=== PATIENT | female | born 1950 | race Caucasian/White ===

== ENCOUNTER 2017-08-06 09:36 | Inpatient (IN) | payer OTHER ==
[2017-08-06] MEDS ORDERED: NS 0.9% 1000 ML* 1,000 ML IV ONE (10:05)
[2017-08-06 10:29] LABS: ABS Basophils 0.1 10^3/ul (0-0.2); ABS Eosinophils 0 10^3/ul (0-0.6); ABS Lymphocytes 0.9 10^3/ul (1.0-4.8); ABS Monocytes 0.5 10^3/ul (0-0.8); ABS Nucleated RBC 0 10^3/ul; Eosinophil % 0.7 % (0-6); Hematocrit 42 % (35-47); Hemoglobin 14.1 g/dl (12.0-16.0); Lymphocyte % 11.8 % (25-47); Mean Corpuscular HGB Conc 34 g/dl (31-36); Mean Corpuscular Hemoglobin 31 pg (27-31); Mean Corpuscular Volume 93 fL (80-97); Mean Platelet Volume 8 um3 (7.4-10.4); Nucleated Red Blood Cells % 0; Platelet Count 244 10^3/ul (150-450); Red Blood Count 4.53 10^6/ul (4.0-5.4); Red Cell Distribution Width 13 % (10.5-15); White Blood Count 7.5 10^3/ul (3.5-10.8)
--- NOTE | 2017-08-06 10:39 | RAD ---
Indication: Neurological changes; code bailey. Comparison: August 09, 2015 MRI. Technique: Noncontrast CT vertex of skull through foramen magnum. Report: Small region of encephalomalacia at the medial RIGHT occipital lobe. Small bilateral chronic infarcts at the cerebellum. Negative for bailey matter white matter obscuration associated with mass effect or intra-axial or extra-axial hemorrhage. Unremarkable cerebral sulci, cerebellar fissures, ventricles, basal cisterns. Unremarkable calvarium and skull base. Clear visualized paranasal sinuses and mastoid air spaces. Unremarkable scalp. IMPRESSION: 1. No evidence for intracranial hemorrhage or compelling CT stigmata of acute or subacute ischemic stroke. 2. Mild encephalomalacia at the medial RIGHT occipital lobe likely reflecting sequela of previous infarct and small bilateral chronic cerebellar lacunar infarcts. Results discussed with Dr. Monge 08/06/2017 10:35 AM EST
[2017-08-06 10:47] LABS: INR 0.84 (0.77-1.02)
--- NOTE | 2017-08-06 10:50 | RAD ---
Indication: Transient vision loss to/code bailey. Comparison: July 07, 2017 CT. Technique: Upright AP 1035 hours Report: Mild pleural parenchymal scarring noted at the inferior lingula unchanged from the prior CT. The lungs and pleural spaces are otherwise clear. Negative for pneumothorax. Negative for cardiomegaly. Bilateral epicardial fat pads noted. Unremarkable central pulmonary vasculature. Anterior cervical fusion hardware noted. IMPRESSION: No evidence for acute intrathoracic disease.
[2017-08-06] MEDS ORDERED: Iohexol 350* (CONTRAST) 500 ML MDV IV ONE (11:15)
--- NOTE | 2017-08-06 12:07 | RAD ---
HISTORY: TIA COMPARISONS: Head CT dated August 06, 2012 TECHNIQUE: The following sequences were obtained of the head: Sagittal T1-weighted images, axial T2-weighted images, axial FLAIR images, axial susceptibility weighted images, axial T1-weighted images. Additionally, axial diffusion-weighted images were obtained with calculated apparent diffusion coefficients. FINDINGS: HEMORRHAGE/INFARCT: There is no hemorrhage or acute infarct. MASSES/SHIFT: There is no mass or shift. EXTRA-AXIAL SPACES/MENINGES: There are no extra-axial fluid collections. SULCI AND VENTRICLES: The sulci and ventricles are normal in size and position for the patient's stated age. CEREBRUM: There is a small focus of encephalomalacia within the right occipital lobe. BRAINSTEM: There are no focal parenchymal abnormalities. CEREBELLUM: There are chronic lacunar infarcts of the inferior cerebellum bilaterally. The cerebellar tonsils are normal in size and position. SELLA: The sella is normal. PINEAL: The pineal region is clear. CP ANGLE/TEMPORAL BONES: The labyrinthine structures are grossly normal. VESSELS: Normal flow-voids are noted within the visualized vertebral vasculature. DIFFUSION ABNORMALITIES: There are no diffusion abnormalities. PARANASAL SINUSES/MASTOIDS: The paranasal sinuses are clear. ORBITS: The orbits are unremarkable. BONES AND SOFT TISSUE: No bone or soft tissue abnormalities are noted. OTHER: None IMPRESSION: 1. SMALL FOCUS OF ENCEPHALOMALACIA WITHIN THE RIGHT OCCIPITAL LOBE WITH CHRONIC LACUNAR INFARCTS OF THE INFERIOR CEREBELLUM BILATERALLY. 2. NO RESTRICTED DIFFUSION TO SUGGEST ACUTE INFARCT
--- NOTE | 2017-08-06 12:44 | ED ---
Juan R Dailey Angela, scribed for George Monge MD on 08/06/17 at 1005 . Neurological HPI - HPI Summary HPI Summary: This pt is a 66 y/o female presenting to [facility] c/o loss of vision from both eyes at around 08:30 this morning. She reports she was on her way to her PCP's office for a prescription refill. She notes she felt well this morning upon waking up. Pt notes it happened spontaneously, lasting approximately 10-15 seconds. She was able to mold puller and stop her car. Pt states she felt disoriented. She reports her vision resolved spontaneously all at once "slowly. " Since loss of vision pt states she has slight tingling on her left cheek. Pt denies slurred speech, difficulty speaking, weakness in extremities, chest pain , palpitations. She has had a previous CVA (2014) where she had loss of vision of left eye , now has left lower quadrant vision deficit. Pt is currently on a baby aspirin. Her neurologist is Dr. Phipps. Pt has a loop recorder to find a possible atrial fibrillation, followed up by line staker Dr. Perales. - History of Current Complaint Chief Complaint: EDNeurologicalDeficit Stated Complaint: LOST VISION IN BOTH EYES Time Seen by Provider: 08/06/17 09:53 Hx Obtained From: Patient Onset/Duration: Started hours ago, Resolved Timing: Sudden Onset - lasting 10-15 seconds Onset Severity: Moderate Current Severity: None Pain Intensity: 0 Character: Visual Changes - loss of vision, Other: - tingling on left cheek, disoriented Episode Lasting: Seconds/Minutes - 10-15 seconds Aggravating: Nothing Alleviating: Spontanious Resolution Associated Signs and Symptoms: Positive: Visual Changes - loss of vision - Additional Pertinent History Primary Care Physician: [id number] - Allergy/Home Medications Allergies/Adverse Reactions: Allergies Allergy/AdvReac Type Severity Reaction Status Date / Time Levofloxacin [From Levaquin] Allergy Palpitation Verified 05/26/17 13:45 s Home Medications: Home Medications ALPRAZolam TAB* [Xanax TAB*] 0.25 mg PO BID PRN 08/06/17 [History Confirmed ] Budesonide/Formote 160/4.5(NF) [Symbicort 160/4.5 (NF)] 2 puff INH BID 08/06/17 [History Confirmed 08/06/17] Ibandronate TAB(NF) [Boniva(NF)] 150 mg PO MONTHLY 08/06/17 [History Confirmed 08/06/17] Tiotropium CAP.INH* [Spiriva CAP.INH*] 1 cap.inh INH DAILY 08/06/17 [History Confirmed 08/06/17] PMH/Surg Hx/FS Hx/Imm Hx Endocrine/Hematology History: Reports: Hx Systemic Lupus Erythematosus Denies: Hx Diabetes Cardiovascular History: Denies: Hx Hypertension, Hx Pacemaker/ICD History: Denies: Hx Renal Disease Musculoskeletal History: Reports: Hx Tendonitis - tendon rupture - right index finger, had surgery to repair. Denies: Hx Osteoporosis Sensory History: Reports: Hx Contacts or Glasses - reading Denies: Hx Hearing Aid Opthamlomology History: Reports: Hx Contacts or Glasses - reading Neurological History: Reports: Hx CVA, Other Neuro Impairments/Disorders - peripheral vision problems since June Psychiatric History: Denies: Hx Panic Disorder - Cancer History Hx Chemotherapy: No Hx Radiation Therapy: No - Surgical History Surgery Procedure, Year, and Place: LAMINECTOMY C5,C6,C7 FUSION, HYSTERECTOMY, FEMORAL NERVE IMPINGEMENT, RIGHT HAND COMPARTMENT RELEASE, RIGHT FOOT NEUROMA. INTERNAL LOOP RECORDER [employer] REVE[employer] INSERTED LEFT CHEST 11/2015-1.5 AFTER 6 WEEKS. RIGHT HAND INDEX FINGER 2014-RUPTURED TENDON REPAIR Infectious Disease History: No Infectious Disease History: Denies: Traveled Outside the [place] in Last 30 Days - Family History Known Family History: Positive: Other - Father: CHF. Mother: breast CA. - Social History Alcohol Use: Daily Alcohol Amount: 4 beers or less Substance Use Type: Reports: None Smoking Status (MU): Former Smoker Review of Systems Negative: Fever, Chills Eyes: Other - loss of vision for 10-15 seconds. Negative: Palpitations, Chest Pain Neurological: Other - NEG: slurred speech, difficulty speaking Positive: Paresthesia - left cheek. Negative: Weakness All Other Systems Reviewed And Are Negative: Yes Physical Exam - Summary Physical Exam Summary: General: well-appearing, no pain distress Skin: warm, color reflects adequate perfusion, dry Head: normal Eyes: EOMI, DESIREE ENT: normal Neck: supple, nontender Respiratory: CTA, breath sounds present Cardiovascular: RRR Abdomen: soft, nontender Bowel: present Musculoskeletal: normal, strength/ROM intact Neurological: sensory/motor intact, A&O x3. Pt reports slight acute decreased sensation of the left sided face. Loss of vision to the left lower quadrant from both eyes. Psychological: affect/mood appropriate Triage Information Reviewed: Yes Vital Signs On Initial Exam: Initial Vitals Temp Pulse Resp BP Pulse Ox 98.3 F 83 20 173/68 100 08/06/17 09:38 08/06/17 09:38 08/06/17 09:38 08/06/17 09:38 08/06/17 09:38 Vital Signs Reviewed: Yes - Wendy Coma Scale Best Eye Response: 4 - Spontaneous Best Motor Response: 6 - Obeys Commands Best Verbal Response: 5 - Oriented Diagnostics - Vital Signs Vital Signs Temp Pulse Resp BP Pulse Ox 08/06/17 09:38 98.3 F 83 20 173/68 100 - Laboratory Lab Results: Lab Results 08/06/17 08/06/17 08/06/17 Range/Units 10:13 10:13 10:13 WBC 7.5 (3.5-10.8) 10^3/ul RBC 4.53 (4.0-5.4) 10^6/ul Hgb 14.1 (12.0-16.0) g/dl Hct 42 (35-47) % MCV 93 (80-97) fL MCH 31 (27-31) pg MCHC 34 (31-36) g/dl RDW 13 (10.5-15) % Plt Count 244 (150-450) 10^3/ul MPV 8 (7.4-10.4) um3 Neut % (Auto) 80.3 (38-83) % Lymph % (Auto) 11.8 L (25-47) % Weston % (Auto) 6.2 (1-9) % Eos % (Auto) 0.7 (0-6) % Baso % (Auto) 1.0 (0-2) % Absolute Neuts (auto) 6.0 (1.5-7.7) 10^3/ul Absolute Lymphs (auto) 0.9 L (1.0-4.8) 10^3/ul Absolute Monos (auto) 0.5 (0-0.8) 10^3/ul Absolute Eos (auto) 0 (0-0.6) 10^3/ul Absolute Basos (auto) 0.1 (0-0.2) 10^3/ul Absolute Nucleated RBC 0 10^3/ul Nucleated RBC % 0 INR (Anticoag Therapy) 0.84 (0.77-1.02) APTT 33.3 (26.0-36.3) seconds Sodium 138 (133-145) mmol/L Potassium 3.9 (3.5-5.0) mmol/L Chloride 102 (101-111) mmol/L Carbon Dioxide 28 (22-32) mmol/L Anion Gap 8 (2-11) mmol/L BUN 14 (6-24) mg/dL Creatinine 0.74 (0.51-0.95) mg/dL Est GFR ( Amer) 101.6 (>60) Est GFR (Non-Af Amer) 79.0 (>60) BUN/Creatinine Ratio 18.9 (8-20) Glucose 113 H (70-100) mg/dL Lactic Acid (0.5-2.0) mmol/L Calcium 9.6 (8.6-10.3) mg/dL Total Bilirubin 0.60 (0.2-1.0) mg/dL AST 24 (13-39) U/L ALT 23 (7-52) U/L Alkaline Phosphatase 66 (34-104) U/L Troponin I 0.00 (<0.04) ng/mL Total Protein 7.1 (6.4-8.9) g/dL Albumin 4.5 (3.2-5.2) g/dL Globulin 2.6 (2-4) g/dL Albumin/Globulin Ratio 1.7 (1-3) Triglycerides 88 mg/dL Cholesterol 195 mg/dL LDL Cholesterol 83 mg/dL HDL Cholesterol 94.1 mg/dL Blood Type Antibody Screen 08/06/17 08/06/17 Range/Units 10:13 10:13 WBC (3.5-10.8) 10^3/ul RBC (4.0-5.4) 10^6/ul Hgb (12.0-16.0) g/dl Hct (35-47) % MCV (80-97) fL MCH (27-31) pg MCHC (31-36) g/dl RDW (10.5-15) % Plt Count (150-450) 10^3/ul MPV (7.4-10.4) um3 Neut % (Auto) (38-83) % Lymph % (Auto) (25-47) % Weston % (Auto) (1-9) % Eos % (Auto) (0-6) % Baso % (Auto) (0-2) % Absolute Neuts (auto) (1.5-7.7) 10^3/ul Absolute Lymphs (auto) (1.0-4.8) 10^3/ul Absolute Monos (auto) (0-0.8) 10^3/ul Absolute Eos (auto) (0-0.6) 10^3/ul Absolute Basos (auto) (0-0.2) 10^3/ul Absolute Nucleated RBC 10^3/ul Nucleated RBC % INR (Anticoag Therapy) (0.77-1.02) APTT (26.0-36.3) seconds Sodium (133-145) mmol/L Potassium (3.5-5.0) mmol/L Chloride (101-111) mmol/L Carbon Dioxide (22-32) mmol/L Anion Gap (2-11) mmol/L BUN (6-24) mg/dL Creatinine (0.51-0.95) mg/dL Est GFR ( Amer) (>60) Est GFR (Non-Af Amer) (>60) BUN/Creatinine Ratio (8-20) Glucose (70-100) mg/dL Lactic Acid 0.9 (0.5-2.0) mmol/L Calcium (8.6-10.3) mg/dL Total Bilirubin (0.2-1.0) mg/dL AST (13-39) U/L ALT (7-52) U/L Alkaline Phosphatase (34-104) U/L Troponin I (<0.04) ng/mL Total Protein (6.4-8.9) g/dL Albumin (3.2-5.2) g/dL Globulin (2-4) g/dL Albumin/Globulin Ratio (1-3) Triglycerides mg/dL Cholesterol mg/dL LDL Cholesterol mg/dL HDL Cholesterol mg/dL Blood Type O Positive Antibody Screen Negative Result Diagrams: 08/06/17 10:13 08/06/17 10:13 Lab Statement: Any lab studies that have been ordered have been reviewed, and results considered in the medical decision making process. - Radiology Chest XR Xray Interpretation: No Acute Changes - IMPRESSION: No evidence for acute intrathoracic disease. Dr. Monge has reviewed this radiology report. Radiology Interpretation Completed By: Radiologist - CT Brain CT CT Interpretation: No Acute Changes - IMPRESSION: 1. No evidence for intracranial hemorrhage or compelling CT stigmata of acute or subacute ischemic stroke. 2. Mild encephalomalacia at the medial RIGHT occipital lobe likely reflecting sequela of previous infarct and small bilateral chronic cerebellar lacunar infarcts. Dr. Monge has reviewed this radiology report. CT Interpretation Completed By: Radiologist - EKG 10:07 Cardiac Rate: NL EKG Rhythm: Sinus Rhythm - at [address] Segment: Normal Ectopy: None NIH Scale - NIH Scale Level of Consciousness: Alert/Keenly Responsive Ask Patient the Month and His/Her Age: Both Correct Ask Pt to Open/Close Eyes and Research [employer] Supervisor/Release Non-Paretic Hand: Both Correctly Best Gaze (Only Horizontal Eye Movement): Normal Visual Field Testing: Partial Hemianopia Facial Paresis-Pt to Smile & Close Eyes or Grimace Symmetry: Normal/Symmetrical Motor Function - Right Arm: No Drift-Holds 10 Seconds Motor Function - Left Arm: No Drift-Holds 10 Seconds Motor Function - Right Leg: No Drift-Holds 10 Seconds Motor Function - Left Leg: No Drift-Holds 10 Seconds Limb Ataxia-Must be out of Proportion to Weakness Present: Absent Sensory (Use Pinprick to Test Arms/Legs/Trunk/Face): Normal Best Language (Describe Picture, Name Items): No Aphasia Dysarthria (Read Several Words): Normal Extinction and Inattention: No Abnormality Total Score: 1 Course/Dx - Course Course Of Treatment: Medications reviewed. Allergies noted. High blood pressure noted. NIH stroke scale =1. Brain CT shows 1. No evidence for intracranial hemorrhage or compelling CT stigmata of acute or subacute ischemic stroke. 2. Mild encephalomalacia at the medial RIGHT occipital lobe likely reflecting sequela of previous infarct and small bilateral chronic cerebellar lacunar infarcts. I discussed pt care with Dr. Dan, neurologist, who will come see the pt in the ED. DR DAN, NEUROLOGY, SAW PATIENT IN THE ED. ADMIT HOSPITALIST. CRITICAL CARE TIME LESS THAN 30 MINUTES. - Diagnoses Provider Diagnoses: Transient blindness of both eyes, Near syncope During the Visit The Following Alert/Code Occurred: Code Blood - at 10:05 - Physician Notifications Discussed Care Of Patient With: Benito Dan Time Discussed With Above Provider: 10:07 Instructed by Provider To: Other - I discussed pt care with Dr. Dan, neurologist, who will come see the pt in the ED. Discharge - Discharge Plan Condition: Stable Disposition: ADMITTED TO [facility] Referrals: Jose Bass MD [Primary Care Provider] - The documentation as recorded by the Juan R cheung Angela accurately reflects the service I personally performed and the decisions made by me, George Monge MD.
--- NOTE | 2017-08-06 13:03 | RAD ---
HISTORY: Rule out thrombus. No other history is provided. COMPARISONS: August 18, 2015 TECHNIQUE: Multiple transverse and longitudinal ultrasound images were obtained of the bilateral lower extremities from the level of the common femoral vein inferiorly through to the infrapopliteal veins using grayscale, color Doppler, and spectral Doppler imaging with and without compression and with augmentation. FINDINGS: VEINS: There is suboptimal visualization of the right calf veins. The venous system of the bilateral lower extremities is compressible throughout its course, with normal flow on color Doppler imaging and normal response to augmentation on spectral Doppler imaging. SOFT TISSUES: Unremarkable. OTHER FINDINGS: None. IMPRESSION: NO RIGHT LOWER EXTREMITY DEEP VEIN THROMBOSIS. NO LEFT LOWER EXTREMITY DEEP VEIN THROMBOSIS
[2017-08-06] MEDS ORDERED: Acetaminophen TAB* 325 MG PO PRN (13:38)
[2017-08-06] MEDS ORDERED: Ondansetron INJ* 2 MG/ML VIAL IV PRN (13:38)
[2017-08-06] MEDS ORDERED: ALPRAZolam TAB* 0.25 MG PO PRN (13:40)
[2017-08-06] MEDS ORDERED: Albuterol 2.5 MG/3 ML NEB.SOL* (0.083%) INH PRN (13:41)
--- NOTE | 2017-08-06 13:52 | RAD ---
HISTORY: TIA COMPARISONS: MRI dated February 03, 2015 TECHNIQUE: Multiple contiguous axial CT scans were obtained of the head and neck After the administration of nonionic intravenous contrast timed to the systemic arterial phase of contrast enhancement. Coronal and sagittal multiplanar reformations are submitted for review. Multiple 3-D maximum intensity projection reconstructions are also submitted for review. FINDINGS: CTA NECK: AORTIC ARCH: There is a normal three-vessel branching pattern of the aortic arch. There is no ostial or proximal stenosis of the cephalic great vessels. RIGHT VERTEBRAL ARTERY: The right vertebral artery is patent along its course, without stenosis. LEFT VERTEBRAL ARTERY: The left vertebral artery is patent along its course, without stenosis. DOMINANCE: The left vertebral artery is dominant. RIGHT COMMON CAROTID ARTERY: The right common carotid artery is patent. The right carotid bifurcation occurs at C4-C5 RIGHT INTERNAL CAROTID ARTERY: There is no right internal carotid artery stenosis by NASCET criteria. RIGHT EXTERNAL CAROTID ARTERY: The right external carotid artery is unremarkable. LEFT COMMON CAROTID ARTERY: The left common carotid artery is patent. The left carotid bifurcation occurs at C3-C4 LEFT INTERNAL CAROTID ARTERY: There is no left internal carotid artery stenosis by NASCET criteria. LEFT EXTERNAL CAROTID ARTERY: The left external carotid artery is unremarkable. VENOUS CIRCULATION: The venous system is unremarkable. SALIVARY GLANDS: The parotid glands, submandibular glands, sublingual glands are normal. NASAL CAVITY/NASOPHARYNX: The nasal cavity and nasopharynx are normal. ORAL CAVITY/OROPHARYNX: The oral cavity is obscured by streak artifact from dental amalgam. The visualized oral cavity and oropharynx are unremarkable. LARYNGEAL APPARATUS/HYPOPHARYNX: The laryngeal apparatus and hypopharynx are normal. UPPER AIRWAY/UPPER ESOPHAGUS: The visualized upper airway and esophagus are normal. LUNG APICES: The lung apices are clear. THYROID GLAND: The thyroid gland is normal. LYMPH NODES: There is no lymphadenopathy by size criteria. BONES AND SOFT TISSUES: The patient is status post anterior cervical fusion, and decompressive laminectomy at C5-C6 and C6-C7. CTA HEAD: INTRACRANIAL CIRCULATION: There is no aneurysm, vascular malformation, occlusion, or stenosis of the visualized intracranial circulation. The anterior communicating artery complex is clear. The posterior communicating arteries are diminutive, if present. VENOUS CIRCULATION: The venous system is unremarkable. PERFUSION: There is no obvious parenchymal perfusion deficit. HEMORRHAGE/INFARCT: There is no hemorrhage or acute infarct. MASSES/SHIFT: There is no mass or shift. EXTRA-AXIAL SPACES: There are no extra-axial fluid collections. SULCI AND VENTRICLES: The sulci and ventricles are normal in size and position for the patient's stated age. CEREBRUM: Again noted is right occipital encephalomalacia. BRAINSTEM: There are no focal parenchymal abnormalities. CEREBELLUM: There are no focal parenchymal abnormalities. PARANASAL SINUSES: The paranasal sinuses are clear. ORBITS: The orbits are unremarkable. BONES AND SOFT TISSUE: No bone or soft tissue abnormalities are noted. OTHER: There is no abnormal enhancement. IMPRESSION: 1. NO INTERNAL CAROTID ARTERY STENOSIS BY NASCET CRITERIA. 2. NO ANEURYSM, VASCULAR MALFORMATION, OCCLUSION, OR STENOSIS OF THE VISUALIZED INTRACRANIAL CIRCULATION. CPT II Codes: 3100F
[2017-08-06] MEDS ORDERED: LORazepam TAB(*) 1 MG PO SCH (14:00)
--- NOTE | 2017-08-06 14:40 | CONS ---
CC: Dr. Jose Bass * CONSULTATION REPORT: DATE OF CONSULT: 08/06/17 LOCATION: She is currently in ED, bed 3. PRIMARY CARE PHYSICIAN: Dr. Jose Bass. REASON FOR CONSULT: Acute vision loss. HISTORY OF PRESENT ILLNESS: Ms. Lopes is a very nice 66-year-old female who presents to the hospital today with acute onset of vision loss. She is followed by me in clinic for a history of some tremors and twitching in the left upper extremity. We are currently in the process of a workup. She did have an EMG dated 02/18/17, which is minimally abnormal, showed no significant radiculopathy. She has a history of prior stroke in July of 2015. At that time, she was admitted having had an episode in June of 2015 of left arm weakness accompanied by left- sided vision loss and lasted approximately 15 minutes and then resolved, but her visual deficits persisted. She had 2 other episodes and ultimately was seen by an orientation and mobility specialist. She eventually had an MRI on the day of admission, which showed possible occipital infarct. At that time, she had a stroke workup. CTA was negative. She had a TTE and then subsequently had a JOYCELYN, which showed a small patent foramen ovale. Dopplers of the lower extremities were negative. She did have a repeat MRI on the 17 of August, which showed a small area of restricted diffusion in the right occipital lobe. She was discharged home on aspirin 81 mg q. day, Lipitor, and vitamin D. She has been in her usual state of health when this morning she was driving at about 8:30, she felt slightly nauseated and diaphoretic, "I did not feel right" and subsequently had some palpitations quickly thereafter developing some vision loss which tunneled. She states she had complete vision loss for about 10 to 15 seconds. She was able pull the car over. She did not lose consciousness, but she fell like she might. She noted no chest pain at the time. She noted no numbness, tingling, or weakness in her arms or legs. No eye pain. No hearing loss or ringing in her ears. She noted no facial droop or speech difficulties after the event. She otherwise felt okay. The symptoms resolved after a few seconds and then she came to the ER for further evaluation. In the ER, CT of the head showed the old right occipital stroke, but no acute changes. Since her admission to the ER, she has had no further episodes. She does have a loop recorder that she wears for some history of syncopal-like episodes and although besides the palpitations she felt this morning, she has had no recent heart problems. She denies any falls or any head trauma. No nausea, vomiting, diarrhea, or constipation prior to this episode. She has not recently been sick. She denies any dysuria, frequency or urgency, and besides her chronic left arm twitching and pain, she states she has felt okay. PAST MEDICAL HISTORY: Includes discoid lupus, hypercholesterolemia, prior stroke, and PFO. PAST SURGICAL HISTORY: Includes cervical laminectomy with anterior cervical disk fusion as well compartment release in the right hand, ruptured tendon in the right second digit, and hysterectomy. MEDICATIONS: Current medications at home: 1. Vitamin B complex. 2. Tiotropium. 3. Metoprolol. 4. Ibandronate. 5. Calciferol. 6. Symbicort. 7. Atorvastatin. 8. Lipitor 40 mg q. day. 9. Aspirin 81 mg q. day. 10. Alprazolam 0.25 mg p.o. b.i.d. p.r.n. ALLERGIES: To LEVOFLOXACIN. FAMILY HISTORY: Breast cancer in her mom, stroke in her maternal grandmother, congestive heart failure in her father, half sister with lung cancer, half brother with unknown health. SOCIAL HISTORY: She denies any tobacco use recently. She did smoke in the distant past. Has a [id number]-dwpb history, but quit 10 years ago. She drinks occasionally, but not heavily. REVIEW OF SYSTEMS: In 14 organ systems is noted above, otherwise negative. PHYSICAL EXAM: Vital Signs: Temperature of 98.3, pulse of 83, respiratory rate of 20, pulse ox of 100%, blood pressure 173/68. In general, she is a well- nourished, well-developed female, in no acute distress. She is pleasant, well dressed, well groomed. HEENT: She is normocephalic, atraumatic. Sclerae are anicteric. Mucous membranes are moist. Oropharynx is clear. Neck is slightly stiff. No thyromegaly. No carotid bruits. No meningismus. Chest: Clear to auscultation bilaterally. Cardiovascular: Regular rate and rhythm. No murmurs. Abdomen: Nontender. Extremities: No clubbing, cyanosis, or edema. Her skin is warm and dry without lesions. There are no palpable cords or redness in her legs. On neurologic examination, she is awake, alert, oriented x3. Her speech is fluent. There is no dysarthria. Repetition is intact. Recall of recent and remote events is intact. Vocabulary is intact. Her mood is dysthymic. Affect is mood congruent. Cranial nerves II through XII: Pupils are equal, round, and reactive to light, extraocular muscles are intact. She has a left homonymous lower quadrant anopsia. Face is symmetric. Sensation is intact. Tongue is midline. Palate raises symmetrically. Hearing is intact bilaterally. Sternocleidomastoid and trapezius are both within normal limits . Motor Exam: Spontaneously, she is moving all extremities antigravity with 5/5 throughout with no drift. She does have some give away weakness at times in the left upper extremity, but is able to give good resistance strength intermittently. She has chronic left upper extremity pain and neck pain. Sensation, she states is intact to light touch and pinprick throughout. There is no neglect. Lwuimy-xn-[id number] and rapid alternating movements were intact without tremors. No dysdiadochokinesia or dysmetria. DTRs are 1+ and symmetric in the upper extremities, 2+ at the patella bilaterally, 1+ at the ankles, downgoing Babinski's. Gait was not tested. At this time, she has had no difficulty walking. Her NIH Stroke Scale calculated at the time of my exam was 1; she missed a point for a partial visual loss. DIAGNOSTIC STUDIES/LAB DATA: Lab work includes a CBC with diff, it was essentially normal, percent lymphocyte of 11.8, absolute lymphocyte of 0.9. Her INR of 0.84, PTT 33.3. Chemistry is pending. Triglycerides are 123, cholesterol is 224, LDL of 125, HDL of 74.5. CT scan as above. ASSESSMENT AND PLAN: Ms. Lopes is a 66-year-old female with a history of discoid lupus, history of hyperlipidemia, history of hypertension, prior right occipital stroke with residual left lower homonymous lower quadrant anopsia. Also, has a history of syncopal-like episodes. Has a loop recorder in place. She was noted to have a patent foramen ovale on her prior stroke workup in 2016. This morning was driving when she developed sudden complete visual loss in all galo. She states that she was having some palpitations, felt slightly nauseated, and sweaty at the time and her vision started to tunnel. It lasted for 10 to 15 seconds and then resolved, but she still feels "funny." She has had no other symptoms. At this point, my suspicion for transient ischemic attack is low, but given the fact that she has had a prior stroke with some visual symptoms and patent foramen ovale, we cannot completely rule out the possibility that she had transient ischemic attack with new visual symptoms that along with her prior visual loss could be perceived as complete vision loss. It would be very unusual given the nature of her symptoms, I suspect this is more of a presyncopal-type episode. She does have a loop recorder in place. I recommend the following: Admit for observation. Given her history, I would like to get an MRI to look for any evidence of new stroke, silent strokes that she may have had, and any change since her prior MRI, this is important because they could manager exchange with her patent foramen ovale. If she has had additional strokes, we would consider full-strength anticoagulation versus closure of her patent foramen ovale. I am going to order echocardiogram as well and a CT angiogram to do a full stroke workup. I am also going to order lower extremity Dopplers to look for any evidence of deep venous thrombosis. I will continue her aspirin for now. Continue her Lipitor increasing the dose to full strength 80 mg as her goal LDL should be less than 70 and currently it is not. Because of her symptoms have resolved, I would continue to control her blood pressure, monitor her on telemetry for any evidence of arrhythmia, I would also try to get the loop recorder interrogated to see if she had any arrhythmia during this episode. We will check some additional labs to rule out reversible causes of stroke. We will order orthostatic blood pressures as well. I expect if her work is negative, she will likely go home in the next day or two. I will continue to follow her closely and make further recommendations as necessary. Thank you for the opportunity to participate in her care. [id number]/[facility] [place] #: [id number] ROE
[2017-08-06 15:01] LABS: Urine Appearance Clear; Urine Blood Negative (Negative); Urine Color Yellow; Urine Ketones Trace (Negative); Urine Protein Negative (Negative); Urine Urobilinogen Negative (Negative)
--- NOTE | 2017-08-06 15:16 | ECHO ---
Patient: REENA FAY [facility] Rec#: [id number] : 1950 Date: 08/06/2017 Age: 66y Height: 167.64 cm / 66.0 in Weight: 78.47 kg / 172.9 lbs Sex: F BSA: 1.88 Room#: -3 Admit Date#: 08/06/2017 Type: Inpatient Referring: Hua Dan Reading: Roya Can MD Senior Software Qa Analyst: Pham Mejia RDCS CC: Jose Bass MD Transthoracic Echocardiogram Indication: TIA BP: 150/81 HR: 89 Rhythm: NSR Findings History: Loss of vision this morning,prior TIA CVA,discoid lupus, former smoker, daily ETOH. Technical Comments: The study quality is good. Completed at 1420. Left Ventricle: The left ventricular chamber size is normal. There is normal left ventricular systolic function. The estimated ejection fraction is 55-60%. Abnormal left ventricular diastolic function is observed. Left Atrium: The left atrial chamber size is normal. Right Ventricle: The right ventricle is mildly dilated. The right ventricular global systolic function is normal. Right Atrium: The right atrial cavity size is normal. A patent foramen ovale is visualized. A patent foramen ovale is demonstrated by agitated contrast. There is evidence of an atrial septal aneurysm. Aortic Valve: The aortic valve is trileaflet. There is no evidence of aortic valve thickening. There is a trace of aortic regurgitation. There is no evidence of aortic stenosis. Mitral Valve: The mitral valve leaflets appear normal. There is mild mitral regurgitation. There is no evidence of mitral stenosis. Tricuspid Valve: The tricuspid valve leaflets are normal. There is mild tricuspid regurgitation. No pulmonary hypertension is noted. There is no tricuspid stenosis. Pulmonic Valve: The pulmonic valve appears normal. There is trace to mild pulmonic regurgitation. There is no pulmonic stenosis. Pericardium: A pericardial fat pad is visualized. Aorta: There is no dilatation of the ascending aorta. There is no dilatation of the aortic arch. There is no dilation of the aortic root. Pulmonary Artery: The main pulmonary artery appears normal. Venous: The inferior vena cava appears normal in size. There is a greater than 50% respiratory change in the inferior vena cava dimension. Contrast: Normal saline was used as contrast for the bubble study. Intravenous contrast was used to help determine presence of intracardiac shunting. Conclusions There is normal left ventricular systolic function. The estimated ejection fraction is 55-60%. Abnormal left ventricular diastolic function is observed. Mild RV enlargement with normal systolic function. A patent foramen ovale is demonstrated by agitated contrast. There is a trace of aortic regurgitation. There is mild mitral regurgitation. There is mild tricuspid regurgitation. Compared with JOYCELYN of 08/09/15, PFO confirmed, no significant changes in ventricular or valvular function, RVE is now. Measurements Name Value Normal Range RVIDd (AP) 2D 2.8 cm (0.9 - 2.6) RVDdMajor (2D) 3.5 cm (2.2 - 4.4) RAd ISD 4CH 4.8 cm (3.4 - 4.9) RA (A4C)W 3.7 cm (2.9 - 4.6) IVSd (2D) 1 cm (0.6 - 1) LVPWd (2D) 1 cm (0.6 - 1) LVIDd (2D) 4.1 cm (3.6 - 5.4) LVIDs (2D) 3.2 cm - LV FS (2D) 22 % (25 - 45) Aortic Annulus 2 cm (1.4 - 2.6) Ao root diameter (2D) 3.2 cm (2.1 - 3.5) Ascending Ao 3 cm (2.1 - 3.4) Aortic arch 2.5 cm (1.8 - 3.4) Descending Ao 0.7 cm - LA dimension (AP) 2D 3.5 cm (2.3 - 3.8) LAd ISD 4CH 4.7 cm (2.9 - 5.3) LA ISD 4CH W 3.9 cm (2.5 - 4.5) Name Value Normal Range LA ESV SP 4CH (A/L) 40 ml - LA ESV SP 2CH (A/L) 13 ml - LA ESV BP (A/L) 26 ml - LA ESV BP (A/L) index 13.97 ml/m2 - LA ESV SP 4CH (MOD) 35 ml - LA ESV SP 2CH (MOD) 13 ml - Name Value Normal Range MV E-wave Vmax 0.7 m/sec - MV deceleration time 168 msec - MV A-wave Vmax 0.8 m/sec - MV E:A ratio 0.87 ratio - LV septal e' Vmax 0.11 m/sec - LV lateral e' Vmax 0.08 m/sec - LV E:e' septal ratio 6.36 ratio - LV E:e' lateral ratio 8.75 ratio - Name Value Normal Range AV Vmax 1.3 m/sec - AV VTI 32.6 cm - AV peak gradient 6.26 mmHg - AV mean gradient 3.59 mmHg - LVOT Vmax 1 m/sec - LVOT VTI 23.9 cm - LVOT peak gradient 3.63 mmHg - LVOT mean gradient 1.7 mmHg - Name Value Normal Range TR Vmax 2.5 m/sec - TR peak gradient 24 mmHg - RAP 3 mmHg - RVSP 27 mmHg - IVC diameter 1.8 cm - Name Value Normal Range PV Vmax 0.9 m/sec - PV peak gradient 3.15 mmHg -
[2017-08-06] MEDS: Heparin VIAL(*) 5000 UNITS/ML VIAL (FIVE THOUSAND) SUBCUT SCH ×2 (15:44→21:02)
--- NOTE | 2017-08-06 17:01 | HP ---
CC: Dr. Bass; Dr. Dan * HISTORY AND PHYSICAL: DATE OF ADMISSION: 08/06/17 PRIMARY CARE PROVIDER: Dr. Bass. ATTENDING PHYSICIAN WHILE IN THE HOSPITAL: Dr. Leo Alvarado * (report dictated by Dariusz Zambrano NP). CHIEF COMPLAINT: Vision loss. HISTORY OF PRESENT ILLNESS: Ms. Marisol Lopes is a 66-year-old female patient with history of CVA, lupus, and PFO. She came into the ER today. She was driving and suddenly she says her vision just went black. She is not sure if she fainted, lasted for about 10 to 15 seconds. She had no prodrome of symptoms. No chest pain. No shortness of breath. She denied any palpitations prior to or after. She was able to signal with the car and go to the shoulder. She did not lose control of the vehicle. She did not hit anybody. She did not end up in a ditch. She stopped the vehicle. By the time she stopped the vehicle, she knew she was in the vehicle. She felt panic. She felt confused. She was not having any chest pain or shortness of breath at that point or any palpitations. She was able to phone her . She then was able to back the car in a parking lot where she was close by and they were able to take her to her PCP's office, who evaluated her and was recommended to come into the ED. The patient denied having any facial drooping, no vision loss to one eye. She denied having any chest pressure. There was no weakness to onside. She says that she was not walking with an unsteady gait. She has had her symptoms completely resolve in about 10 to 15 seconds. She said previously with her previous CVA, she did have vision loss in the left side, but this was completely different. She came into the ED under the recommendations of her PCP, she was evaluated. There was concern for TIA versus syncope. She was evaluated by Dr. Dan, who recommended OBV admission, and we were asked to evaluate for admission. There have been no reports of recent illnesses such as URI symptoms, no coughing, no fever, no chills. She denied having any recent abdominal pain or nausea or vomiting, and no recent change in her medications. Because of this episode, we were asked to evaluate for admission. PAST MEDICAL HISTORY: Significant for: 1. PFO. 2. Lupus. 3. History of CVA. PAST SURGICAL HISTORY: 1. The patient has had neck surgery x2. 2. She has had hysterectomy. 3. She has had wrist surgery. MEDICATIONS: The home meds include: 1. Vitamin B 1 capsule p.o. daily. 2. Vitamin D 2000 units p.o. daily. 3. Aspirin 81 mg daily. 4. Xanax 0.25 mg p.o. b.i.d. as needed. 5. Spiriva 1 capsule inhaled daily. 6. Metoprolol XL 25 mg daily. 7. Symbicort 2 puffs inhaled b.i.d. 8. Lipitor 40 mg daily. 9. Boniva 150 mg p.o. monthly. ALLERGY MEDICATIONS: Include LEVAQUIN. FAMILY HISTORY: Her mother is still alive. She is healthy according to the patient. Father had history of CHF and he is . SOCIAL HISTORY: She does drink 5 to 6 beers a day. She denies any recreational drug use. She does not smoke. Surrogate decision maker is her , Andrew. REVIEW OF SYSTEMS: There is no documented fever. There is no significant weight change. Denied having any double vision. There was no ear discharge. There was no rhinorrhea. No sore throat. No thyroid enlargement. Denied having any chest pain. There was no orthopnea. No nocturnal dyspnea. There was no abdominal pain. No nausea, no vomiting. No dysuria, no frequency. No seizure, there is a question of loss of consciousness. No pruritus, no skin ulcerations. Review of 14 systems completed, all others negative. PHYSICAL EXAMINATION GENERAL: At this time, Ms. Lopes is a 66-year-old female patient, she appears to be well-nourished, well-developed, she does not appear to be in any acute distress. VITAL SIGNS: Blood pressure 150/81, pulse 82, respirations 18, O2 sat 95% on room air, and temperature 98.3. HEENT: Head: Atraumatic. Eyes: Sclerae anicteric, not pale. Pupils reactive to light. Throat: Oral mucosa appears to be moist. No oropharyngeal erythema. NECK: Supple. LUNGS: Clear to auscultation bilaterally. No wheezes, rales, or rhonchi. HEART: Sounds S1 and S2, regular rate and rhythm. No murmurs, rubs, or gallops. ABDOMEN: Soft, it was flat, it was nontender. Bowel sounds were present. EXTREMITIES: Pulses were 2+ throughout. No peripheral edema. She had 5/5 strength. NEUROLOGIC: The patient is awake, she is alert. Speech is clear. Tongue midline. Labor Relations Representative were equal. Aqghac-nt-subl and nwdt-tw-wrhp is intact bilaterally. She had no gross focal deficits. SKIN: Intact. DIAGNOSTIC STUDIES/LAB DATA: WBC 7.5, RBC of 4.53, hemoglobin 14.1, hematocrit of 42, and platelet count of 244. INR 0.84, PTT of 33.3. Sodium 138 , potassium 3.9, chloride 102, bicarb 28, BUN 14, creatinine 0.74, glucose 113, lactate 0.9, calcium 9.6. Total bili 0.6, AST 24, ALT 23, alk phos 66. Troponin 0. Albumin 4.5. LDH was 83. She had multiple imaging here in the ED. She had ultrasound of the lower extremities, which showed no right or left lower extremity DVT. She did have an MRI of the brain shows small focus of encephalomalacia, the right occipital lobe with chronic lacunar infarcts of the inferior cerebellum bilaterally. No restriction diffusion to suggest acute infarct. CT brain showed no evidence for an intracranial hemorrhage or compelling CT stigmata of acute or subacute ischemic stroke, mild encephalomalacia of the right middle occipital lobe likely representing sequelae of previous infarct and small bilateral chronic cerebellar lacunar infarcts. She also had a chest x-ray showed no evidence for acute disease. CTA of the head and neck is pending. She had EKG, which showed normal sinus rhythm, rate of 78. No ST elevations or T- wave inversions. Old medical records were reviewed. ASSESSMENT AND PLAN: Ms. Lopes is a 66-year-old female patient coming into the ED today with syncopal versus transient ischemic attack episode. She will be admitted under observation status: 1. Syncope versus transient ischemic attack. At this point, Dr. Dan evaluated the patient. The plan will be to go ahead and interrogate the loop recorder, which the patient has in place to make sure she had no arrhythmia such as atrial fibrillation or ventricular arrhythmias that may have contributed to this. It has been interrogated here in the ED, which is pending. I will go ahead and get neuro checks. We will get orthostatic blood pressure. She has had the CTA, echo, MRI already obtained. She had a lipid panel done already as well and we will continue to follow her closely. We will continue her aspirin and statin therapy for the time being unless we find any episodes of atrial fibrillation, then we need to consider anticoagulation. 2. Patent foramen ovale. Follow with her primary. 3. History of lupus. Continue current medical regimen. 4. History of cerebrovascular accident. Continue with secondary prevention. 5. History of chronic obstructive pulmonary disease. Continue her meds as prescribed. 6. History of osteoporosis. She is to follow with her primary and continue her Boniva. 7. History of hypertension. Continue her metoprolol succinate. 8. DVT prophylaxis. She will be placed on heparin subcu. 9. History of EtOH use. At this point, I will put her on [facility] protocol and I am also checking alcohol level. 10. Code status. She is full code. 11. Fluids, electrolytes, and nutrition. She can have a heart-healthy diet. TIME SPENT: Time spent on admission 60 minutes, greater than half the time was spent [id number] with the patient obtaining my history of physical; the other half time was spent going over the plan of care with the patient and implementing plan of care. I did discuss the plan of care with my attending, Dr. Alvarado; he is in agreement. DARIUSZ ZAMBRANO NP [id number]/[facility] #: [id number] ROE
[2017-08-06] MEDS: Mometasone/Formoter 200/5 MDI INH SCH (20:59)
[2017-08-07] MEDS: Heparin VIAL(*) 5000 UNITS/ML VIAL (FIVE THOUSAND) SUBCUT SCH ×3 (05:47→20:20)
[2017-08-07 07:03] LABS: EGFR Non-African American 98.7 (>60)
[2017-08-07 07:14] LABS: ABS Basophils 0.1 10^3/ul (0-0.2); ABS Eosinophils 0.1 10^3/ul (0-0.6); ABS Lymphocytes 1.1 10^3/ul (1.0-4.8); ABS Monocytes 0.3 10^3/ul (0-0.8); ABS Neutrophils 2.6 10^3/ul (1.5-7.7); ABS Nucleated RBC 0 10^3/ul; Eosinophil % 1.6 % (0-6); Hematocrit 43 % (35-47); Hemoglobin 14.4 g/dl (12.0-16.0); Lymphocyte % 26.1 % (25-47); Mean Corpuscular HGB Conc 33 g/dl (31-36); Mean Corpuscular Hemoglobin 31 pg (27-31); Mean Corpuscular Volume 93 fL (80-97); Mean Platelet Volume 9 um3 (7.4-10.4); Nucleated Red Blood Cells % 0; Platelet Count 231 10^3/ul (150-450); Red Blood Count 4.62 10^6/ul (4.0-5.4); Red Cell Distribution Width 13 % (10.5-15); White Blood Count 4.2 10^3/ul (3.5-10.8)
--- NOTE | 2017-08-07 08:10 | PN ---
Subjective Date of Service: 08/07/17 Interval History: No new issues overnight. No further vision symptoms (does have chronic left lower quadrant vision loss). 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 PFO remains CTA: Reviewed, no significant vascular disease LE Dopplers: Negative Labs: LDL in 80s (on statin), B12, Folate, TSH, Free T4 ok Tele: Sinus with some PVCs Objective Active Medications: Acetaminophen (Tylenol Tab*) 650 mg PO Q4H PRN PRN Reason: FEVER/PAIN Albuterol (Ventolin 2.5 Mg/3 Ml Neb.Mera*) 2.5 mg INH Q2H PRN PRN Reason: SOB/WHEEZING Alprazolam (Xanax Tab*) 0.25 mg PO BID PRN PRN Reason: ANXIETY Aspirin (Aspirin Ec Low Dose*) 81 mg PO DAILY [facility] Atorvastatin Calcium (Lipitor*) 80 mg PO DAILY [facility] Folic Acid (Folvite Tab*) 1 mg PO DAILY [facility] Heparin Sodium (Porcine) (Heparin Vial(*)) 5,000 units SUBCUT Q8HR [facility] Last Admin: 08/07/17 05:47 Dose: 5,000 units Lorazepam (Ativan Tab(*)) 0 - 6 mg PO .PER [facility] PROTOCOL [facility] PRN Reason: Protocol Metoprolol Succinate (Toprol Xl Tab*) 25 mg PO DAILY [facility] Mometasone Furoate/Formoterol Fumar (Dulera 200/5 Mdi*) 2 puff INH BID [facility] PRN Reason: Protocol Last Admin: 08/06/17 20:59 Dose: 2 puff Multivitamins/Minerals (Theragran/Minerals Tab*) 1 tab PO DAILY [facility] Ondansetron HCl (Zofran Inj*) 4 mg IV Q6H PRN PRN Reason: NAUSEA Thiamine HCl (Vitamin B-1 Tab*) 100 mg PO DAILY [facility] Tiotropium [place] (Spiriva Cap.Inh*) 1 cap INH DAILY [facility] Vital Signs 08/06/17 08/06/17 08/06/17 14:36 16:10 17:00 Temperature 97.5 F Pulse Rate 74 77 Respiratory 18 16 16 Rate Blood Pressure 112/60 161/82 (mmHg) O2 Sat by Pulse 96 97 Oximetry 08/06/17 08/06/17 08/06/17 18:00 18:15 18:17 Temperature 98.2 F 98.3 F Pulse Rate 82 72 Respiratory 18 18 18 Rate Blood Pressure 128/66 114/63 (mmHg) O2 Sat by Pulse 99 98 Oximetry 08/06/17 08/06/17 08/06/17 19:00 20:00 20:10 Temperature 98.3 F Pulse Rate 77 Respiratory 18 18 Rate Blood Pressure 134/58 (mmHg) O2 Sat by Pulse 96 97 Oximetry 08/06/17 08/06/17 08/06/17 20:59 21:00 22:19 Temperature Pulse Rate 62 87 Respiratory 14 Rate Blood Pressure 147/73 (mmHg) O2 Sat by Pulse 94 94 Oximetry 08/06/17 08/07/17 08/07/17 22:44 00:19 01:17 Temperature 98.4 F 97.5 F 97.7 F Pulse Rate 72 67 78 Respiratory 20 20 20 Rate Blood Pressure 157/71 128/69 135/91 (mmHg) O2 Sat by Pulse 97 99 95 Oximetry 08/07/17 03:57 Temperature 98.4 F Pulse Rate 71 Respiratory 20 Rate Blood Pressure 124/62 (mmHg) O2 Sat by Pulse 96 Oximetry Oxygen Devices in Use Now: None Neurology Exam: General: Awake, Alert, Oriented x3 HEENT: Normocephelic/atraumstic, sclera anicteric, mucous membranes moist Neck: Supple Chest: Clear to auscultation bilaterally Cardiovascular: Regular rate and rhythm without murmurs, rubs, gallops Abdomen: Soft, nontender/nondistended Extremities: No clubing, cyanosis, or edema Neurological Findings: Awake, Alert, Oriented x3 Speech: fluent without dysarthric, repetition intact Cranial Nerve: PEERL, EOM intact, VF: Left lower homonymous quadrantanopsia, no nystagmus, face symmetric bilaterally, facial sensation intact, hearing intact to finger rub bilaterally, palate elevates symmetrically, tongue midline Motor: 5/5 throughout, proximal and distal extremities x4 except some giveway weakness in the LUE proximally, chronic Sensation: intact to LT/PP bilaterally upper and lower extremities Deep Tendon Reflex: 2+ symmetric in the upper/lower extremities, Babinski - down going Finger to nose, rapid alternating movements intact, mild intention tremor and postural tremor bilaterally Result Diagrams: 08/07/17 05:34 08/07/17 05:34 Additional Lab and Data: Lab Results 08/06/17 08/06/17 08/06/17 Range/Units 10:13 10:13 10:13 WBC 7.5 (3.5-10.8) 10^3/ul RBC 4.53 (4.0-5.4) 10^6/ul Hgb 14.1 (12.0-16.0) g/dl Hct 42 (35-47) % MCV 93 (80-97) fL MCH 31 (27-31) pg MCHC 34 (31-36) g/dl RDW 13 (10.5-15) % Plt Count 244 (150-450) 10^3/ul MPV 8 (7.4-10.4) um3 Neut % (Auto) 80.3 (38-83) % Lymph % (Auto) 11.8 L (25-47) % [place] % (Auto) 6.2 (1-9) % Eos % (Auto) 0.7 (0-6) % Baso % (Auto) 1.0 (0-2) % Absolute Neuts (auto) 6.0 (1.5-7.7) 10^3/ul Absolute Lymphs (auto) 0.9 L (1.0-4.8) 10^3/ul Absolute Monos (auto) 0.5 (0-0.8) 10^3/ul Absolute Eos (auto) 0 (0-0.6) 10^3/ul Absolute Basos (auto) 0.1 (0-0.2) 10^3/ul Absolute Nucleated RBC 0 10^3/ul Nucleated RBC % 0 INR (Anticoag Therapy) 0.84 (0.77-1.02) APTT 33.3 (26.0-36.3) seconds Sodium 138 (133-145) mmol/L Potassium 3.9 (3.5-5.0) mmol/L Chloride 102 (101-111) mmol/L Carbon Dioxide 28 (22-32) mmol/L Anion Gap 8 (2-11) mmol/L BUN 14 (6-24) mg/dL Creatinine 0.74 (0.51-0.95) mg/dL Est GFR ( Amer) 101.6 (>60) Est GFR (Non-Af Amer) 79.0 (>60) BUN/Creatinine Ratio 18.9 (8-20) Glucose 113 H (70-100) mg/dL Lactic Acid (0.5-2.0) mmol/L Calcium 9.6 (8.6-10.3) mg/dL Total Bilirubin 0.60 (0.2-1.0) mg/dL AST 24 (13-39) U/L ALT 23 (7-52) U/L Alkaline Phosphatase 66 (34-104) U/L Troponin I 0.00 (<0.04) ng/mL Total Protein 7.1 (6.4-8.9) g/dL Albumin 4.5 (3.2-5.2) g/dL Globulin 2.6 (2-4) g/dL Albumin/Globulin Ratio 1.7 (1-3) Triglycerides 88 mg/dL Cholesterol 195 mg/dL LDL Cholesterol 83 mg/dL HDL Cholesterol 94.1 mg/dL Blood Type Antibody Screen 08/06/17 08/06/17 Range/Units 10:13 10:13 WBC (3.5-10.8) 10^3/ul RBC (4.0-5.4) 10^6/ul Hgb (12.0-16.0) g/dl Hct (35-47) % MCV (80-97) fL MCH (27-31) pg MCHC (31-36) g/dl RDW (10.5-15) % Plt Count (150-450) 10^3/ul MPV (7.4-10.4) um3 Neut % (Auto) (38-83) % Lymph % (Auto) (25-47) % [place] % (Auto) (1-9) % Eos % (Auto) (0-6) % Baso % (Auto) (0-2) % Absolute Neuts (auto) (1.5-7.7) 10^3/ul Absolute Lymphs (auto) (1.0-4.8) 10^3/ul Absolute Monos (auto) (0-0.8) 10^3/ul Absolute Eos (auto) (0-0.6) 10^3/ul Absolute Basos (auto) (0-0.2) 10^3/ul Absolute Nucleated RBC 10^3/ul Nucleated RBC % INR (Anticoag Therapy) (0.77-1.02) APTT (26.0-36.3) seconds Sodium (133-145) mmol/L Potassium (3.5-5.0) mmol/L Chloride (101-111) mmol/L Carbon Dioxide (22-32) mmol/L Anion Gap (2-11) mmol/L BUN (6-24) mg/dL Creatinine (0.51-0.95) mg/dL Est GFR ( Amer) (>60) Est GFR (Non-Af Amer) (>60) BUN/Creatinine Ratio (8-20) Glucose (70-100) mg/dL Lactic Acid 0.9 (0.5-2.0) mmol/L Calcium (8.6-10.3) mg/dL Total Bilirubin (0.2-1.0) mg/dL AST (13-39) U/L ALT (7-52) U/L Alkaline Phosphatase (34-104) U/L Troponin I (<0.04) ng/mL Total Protein (6.4-8.9) g/dL Albumin (3.2-5.2) g/dL Globulin (2-4) g/dL Albumin/Globulin Ratio (1-3) Triglycerides mg/dL Cholesterol mg/dL LDL Cholesterol mg/dL HDL Cholesterol mg/dL Blood Type O Positive Antibody Screen Negative Assessment/Plan 66 year old with a history of PFO, right occipital and bilateral cerebellar strokes presented with s/s consistent with pre-syncopal episode. My suspicion for TIA is low. Symptoms lasted 10-15 seconds, tunneling vision, palpitations, diaphoresis, nausea 1. Suspect pre-syncope. Workup is negative for new issues. There is no significant progression of ischemic disease. No new strokes seen. LE dopplers negative. 2. She follows with a manager quality regularly as outpatient. Continue ASA. Defer to cardiology regarding management of her cardiac issues. 3. Increase Lipitor to 80mg po q day, goal LDL < 70 4. BP control long-term 5. Interrogate intermediate frame tender monitor for arrhythmia. No tele events, suspicion for A.fib very low 6. Chronic left sided vision loss, unchanged 7. Chronic neck pain is stable 8. History of alcohol use, on Folic acid and Thiamine. Counseled to stop Plan to follow up in my clinic. I have already established with her as outpatient.
[2017-08-07] MEDS ORDERED: Spiriva Inhaler DEVICE* 1 EACH DEVICE INH ONE (09:00)
[2017-08-07] MEDS ORDERED: Atorvastatin* 40 MG TAB PO SCH (09:00)
[2017-08-07] MEDS: Atorvastatin* 80 MG TAB PO SCH (09:03)
[2017-08-07] MEDS: Aspirin EC Low Dose* 81 MG TAB.EC PO SCH (09:03)
[2017-08-07] MEDS: Folic Acid TAB* 1 MG PO SCH (09:04)
[2017-08-07] MEDS: Thiamine TAB* 100 MG TAB PO SCH (09:04)
[2017-08-07] MEDS: Multivitamins/Minerals TAB PO SCH (09:04)
[2017-08-07] MEDS: Metoprolol Succinate XL TAB* 25 MG PO SCH (09:04)
[2017-08-07] MEDS: Tiotropium CAP.INH* CAP.INH/18 MCG (USE ORDER SET !) INH SCH (09:45)
[2017-08-07] MEDS: Mometasone/Formoter 200/5 MDI INH SCH ×2 (09:46→20:10)
--- NOTE | 2017-08-07 11:05 | PN ---
Subjective Date of Service: 08/07/17 Interval History: Patient seen and examined at bedside. Denies fever, chills, shortness of breath , chest discomfort, N/V/D. Chronic left sided vision loss, unchanged. Pt reports calling her at ~ 8 :20 am yesterday after episode. According to cardiology office Pt had an event ~ 8:15 am yesterday of 42 beats of vtach. Tele: Sinus rhythm, rate 70's Family History: Unchanged from Admission Social History: Unchanged from Admission Past Medical History: Unchanged from Admission Objective Active Medications: Acetaminophen (Tylenol Tab*) 650 mg PO Q4H PRN Reason: FEVER/PAIN Albuterol (Ventolin 2.5 Mg/3 Ml Neb.Mera*) 2.5 mg INH Q2H PRN Reason: SOB/ WHEEZING Alprazolam (Xanax Tab*) 0.25 mg PO BID PRN Reason: ANXIETY Aspirin (Aspirin Ec Low Dose*) 81 mg PO DAILY [facility] Atorvastatin Calcium (Lipitor*) 80 mg PO DAILY [facility] Folic Acid (Folvite Tab*) 1 mg PO DAILY [facility] Heparin Sodium (Porcine) (Heparin Vial(*)) 5,000 units SUBCUT Q8HR [facility] Lorazepam (Ativan Tab(*)) 0 - 6 mg PO .PER [facility] PROTOCOL [facility] Metoprolol Succinate (Toprol Xl Tab*) 25 mg PO DAILY [facility] Mometasone Furoate/Formoterol Fumar (Dulera 200/5 Mdi*) 2 puff INH BID [facility] Multivitamins/Minerals (Theragran/Minerals Tab*) 1 tab PO DAILY [facility] Ondansetron HCl (Zofran Inj*) 4 mg IV Q6H PRN Reason: NAUSEA Thiamine HCl (Vitamin B-1 Tab*) 100 mg PO DAILY [facility] Tiotropium [place] (Spiriva Cap.Inh*) 1 cap INH DAILY [facility] Vital Signs - 8 hr 08/07/17 08/07/17 03:57 09:49 Temperature 98.4 F Pulse Rate 71 88 Respiratory 20 16 Rate Blood Pressure 124/62 (mmHg) O2 Sat by Pulse 96 96 Oximetry Oxygen Devices in Use Now: None Appearance: NAD, sitting up in bed Respiratory: Symmetrical Chest Expansion and Respiratory Effort, Clear to Auscultation Cardiovascular: NL Sounds; No Murmurs; No JVD, RRR Abdominal: NL Sounds; No Tenderness; No Distention Extremities: No Edema Skin: No Rash or Ulcers Neurological: Alert and Oriented x 3, NL Muscle Strength and Tone Lines/Tubes/Other Access: Clean, Dry and Intact Peripheral IV - site benign Nutrition: Taking PO's Result Diagrams: 08/07/17 05:34 08/07/17 05:34 Additional Lab and Data: Assess/Plan/Problems-Billing Ms. Lopes is a 66 year old with a past medical history of PFO, right occipital and bilateral cerebellar strokes who presented with s/s consistent with a pre- syncopal episode. Symptoms lasted 10-15 seconds, tunneling vision, palpitations , diaphoresis, nausea - Patient Problems (1) Pre-syncope Comment: - Workup is negative for new issues. There is no significant progression of ischemic disease. No new strokes seen. LE dopplers negative. Low suspicion for TIA - Neurology consult, input appreciated - Pt with 42 beat run of vtach yesterday morning on loop recorder - Cardiology consult, pending (2) PFO (patent foramen ovale) Code(s): Q21.1 - ATRIAL SEPTAL DEFECT SNOMED Code(s): 338957372 Comment: - Bilateral LE dopplers negative for DVT - Continue ASA and to follow with PCP (3) Dyslipidemia Code(s): E78.5 - HYPERLIPIDEMIA, UNSPECIFIED SNOMED Code(s): 160298749 Comment: - LDL is above goal of less than 70 - Increase atorvastatin to 80 mg daily for elevated LDL (4) COPD (chronic obstructive pulmonary disease) Code(s): J44.9 - CHRONIC OBSTRUCTIVE PULMONARY DISEASE, UNSPECIFIED SNOMED Code(s): 03493866 Comment: - No exacerbation at this time - Continue home medications (5) Osteoporosis Code(s): M81.0 - AGE-RELATED OSTEOPOROSIS W/O CURRENT PATHOLOGICAL FRACTURE SNOMED Code(s): 00005697 Comment: - Continue Boniva (6) HTN (hypertension) Code(s): I10 - ESSENTIAL (PRIMARY) HYPERTENSION SNOMED Code(s): 34642595 Comment: - Normotensive - Continue metoprolol succinate (7) Alcohol abuse Code(s): F10.10 - ALCOHOL ABUSE, UNCOMPLICATED SNOMED Code(s): 66751332 Comment: - WAM score 0-3 - Pt encouraged to stop drinking - Continue WAM protocol, multivitamin, thiamine and folic acid (8) Discoid lupus Code(s): L93.0 - DISCOID LUPUS ERYTHEMATOSUS SNOMED Code(s): 244048161 Comment: - No issues at this time. She states she only has problems if she goes out in the sun. (9) CVA (cerebral vascular accident) Code(s): I63.9 - CEREBRAL INFARCTION, UNSPECIFIED SNOMED Code(s): 524331847 Comment: - History - Continue ASA, and increase atorvastatin to 80 mg daily (10) DVT prophylaxis Code(s): EKZ0651 - SNOMED Code(s): 435330976 Comment: - SQ heparin (11) Full code status Code(s): Z78.9 - OTHER SPECIFIED HEALTH STATUS SNOMED Code(s): 531082337 Status and Disposition: OBV. Discharge to home when medically stable, possibly later today after cardiology consult.
[2017-08-07] MEDS ORDERED: Magnesium Sulfate 2 GM IV* 2 GM/50 ML BAG IVPB ONE (11:38)
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
[2017-08-08] MEDS ORDERED: diPHENhydraMINE PO* 50 MG PO SCH (05:00)
[2017-08-08] MEDS ORDERED: Diazepam TAB(*) 5 MG PO SCH (05:00)
[2017-08-08 05:35] LABS: EGFR Non-African American 98.7 (>60)
[2017-08-08] MEDS: Heparin VIAL(*) 5000 UNITS/ML VIAL (FIVE THOUSAND) SUBCUT SCH ×3 (05:44→23:17)
[2017-08-08] MEDS ORDERED: NS 0.45% 1000 ML BAG* 1,000 ML IV SCH (06:00)
--- NOTE | 2017-08-08 08:47 | PN ---
Subjective Date of Service: 08/08/17 Interval History: Patient seen and examined at bedside. Denies fever, chills, shortness of breath , chest discomfort, N/V/D. Reports intermittent "PVCs". Tele: Sinus rhythm, rate 70-80's Family History: Unchanged from Admission Social History: Unchanged from Admission Past Medical History: Unchanged from Admission Objective Active Medications: Acetaminophen (Tylenol Tab*) 650 mg PO Q4H PRN Reason: FEVER/PAIN Albuterol (Ventolin 2.5 Mg/3 Ml Neb.Mera*) 2.5 mg INH Q2H PRN Reason: SOB/ WHEEZING Alprazolam (Xanax Tab*) 0.25 mg PO BID PRN Reason: ANXIETY Aspirin (Aspirin Ec Low Dose*) 81 mg PO DAILY [facility] Atorvastatin Calcium (Lipitor*) 80 mg PO DAILY [facility] Diazepam (Valium Tab(*)) 5 mg PO ONCALL [facility] Stop: 08/08/17 14:00 Diphenhydramine HCl (Benadryl Po*) 50 mg PO ONCALL [facility] Stop: 08/08/17 14:00 Folic Acid (Folvite Tab*) 1 mg PO DAILY [facility] Heparin Sodium (Porcine) (Heparin Vial(*)) 5,000 units SUBCUT Q8HR [facility] Sodium Chloride (Ns 0.45% 1000 Ml Bag*) 1,000 mls @ 60 mls/hr IV PER RATE [facility] Lorazepam (Ativan Tab(*)) 0 - 6 mg PO .PER [facility] PROTOCOL [facility] Metoprolol Succinate (Toprol Xl Tab*) 25 mg PO DAILY [facility] Mometasone Furoate/Formoterol Fumar (Dulera 200/5 Mdi*) 2 puff INH BID [facility] Multivitamins/Minerals (Theragran/Minerals Tab*) 1 tab PO DAILY [facility] Ondansetron HCl (Zofran Inj*) 4 mg IV Q6H PRN Reason: NAUSEA Thiamine HCl (Vitamin B-1 Tab*) 100 mg PO DAILY [facility] Tiotropium [place] (Spiriva Cap.Inh*) 1 cap INH DAILY [facility] Vital Signs - 8 hr 08/08/17 08/08/17 08/08/17 03:04 03:53 04:00 Temperature 97.9 F Pulse Rate 67 Respiratory 17 17 17 Rate Blood Pressure 114/64 (mmHg) O2 Sat by Pulse 98 Oximetry Oxygen Devices in Use Now: None Appearance: NAD, sitting up in the bed Ears/Nose/Mouth/Throat: Mucous Membranes Moist Respiratory: Symmetrical Chest Expansion and Respiratory Effort, Clear to Auscultation Cardiovascular: NL Sounds; No Murmurs; No JVD, RRR Abdominal: NL Sounds; No Tenderness; No Distention Extremities: No Edema Skin: No Rash or Ulcers Neurological: Alert and Oriented x 3, NL Muscle Strength and Tone Lines/Tubes/Other Access: Clean, Dry and Intact Peripheral IV - site benign Nutrition: Taking PO's Result Diagrams: 08/07/17 05:34 08/08/17 04:48 Additional Lab and Data: Assess/Plan/Problems-Billing Ms. Lopes is a 66 year old with a past medical history of PFO, right occipital and bilateral cerebellar strokes who presented with s/s consistent with a pre- syncopal episode. Symptoms lasted 10-15 seconds, tunneling vision, palpitations , diaphoresis, nausea - Patient Problems (1) Pre-syncope Comment: - Neurologic workup is negative for new issues. There is no significant progression of ischemic disease. No new strokes seen. LE dopplers negative. Low suspicion for TIA - Neurology consult, input appreciated - Pt with 42 beat run of vtach 08/07 morning on loop recorder - Cardiology consult, input appreciated - Plan for cardiac cath later today (2) PFO (patent foramen ovale) Code(s): Q21.1 - ATRIAL SEPTAL DEFECT SNOMED Code(s): 876060286 Comment: - Bilateral LE dopplers negative for DVT - Continue ASA and to follow with PCP (3) Dyslipidemia Code(s): E78.5 - HYPERLIPIDEMIA, UNSPECIFIED SNOMED Code(s): 871993954 Comment: - LDL is above goal of less than 70 - Continue atorvastatin (at increased dose) for elevated LDL (4) COPD (chronic obstructive pulmonary disease) Code(s): J44.9 - CHRONIC OBSTRUCTIVE PULMONARY DISEASE, UNSPECIFIED SNOMED Code(s): 54710307 Comment: - No exacerbation at this time - Continue home medications (5) Osteoporosis Code(s): M81.0 - AGE-RELATED OSTEOPOROSIS W/O CURRENT PATHOLOGICAL FRACTURE SNOMED Code(s): 57654932 Comment: - Continue Boniva (6) HTN (hypertension) Code(s): I10 - ESSENTIAL (PRIMARY) HYPERTENSION SNOMED Code(s): 39144077 Comment: - Normotensive - Continue metoprolol succinate (7) Alcohol abuse Code(s): F10.10 - ALCOHOL ABUSE, UNCOMPLICATED SNOMED Code(s): 00148153 Comment: - WAM score 0-1 - Pt encouraged to stop drinking - Continue WAM protocol, multivitamin, thiamine and folic acid (8) Discoid lupus Code(s): L93.0 - DISCOID LUPUS ERYTHEMATOSUS SNOMED Code(s): 515334565 Comment: - No issues at this time. She states she only has problems if she goes out in the sun. (9) CVA (cerebral vascular accident) Code(s): I63.9 - CEREBRAL INFARCTION, UNSPECIFIED SNOMED Code(s): 939140471 Comment: - History - Continue ASA, and increased atorvastatin (10) DVT prophylaxis Code(s): AMQ6731 - SNOMED Code(s): 042309574 Comment: - SQ heparin (11) Full code status Code(s): Z78.9 - OTHER SPECIFIED HEALTH STATUS SNOMED Code(s): 360375640 Status and Disposition: Inpatient. Discharge to home when medically stable, possibly later today after cardiac cath or in the AM Attending: Shaka Salazar
[2017-08-08] MEDS: Tiotropium CAP.INH* CAP.INH/18 MCG (USE ORDER SET !) INH SCH (08:56)
[2017-08-08] MEDS: Mometasone/Formoter 200/5 MDI INH SCH ×2 (08:56→19:45)
[2017-08-08] MEDS: Metoprolol Succinate XL TAB* 25 MG PO SCH (10:58)
[2017-08-08] MEDS: Folic Acid TAB* 1 MG PO SCH (10:58)
[2017-08-08] MEDS: Thiamine TAB* 100 MG TAB PO SCH (10:58)
[2017-08-08] MEDS: Atorvastatin* 80 MG TAB PO SCH (10:58)
[2017-08-08] MEDS: Multivitamins/Minerals TAB PO SCH (10:58)
[2017-08-08] MEDS: Aspirin EC Low Dose* 81 MG TAB.EC PO SCH (10:58)
[2017-08-08] MEDS ORDERED: Heparin 2 UNITS/ML IVPREMIX* 3,000 ML IV ONE (13:21)
[2017-08-08] MEDS ORDERED: Lidocaine 1% INJ* 10 MG/ML 30 ML SDV ONE (13:21)
[2017-08-08] MEDS ORDERED: Iohexol 350 (CONTRAST) 200 ML MDV IV ONE (13:22)
[2017-08-08] MEDS ORDERED: fentaNYL* 50 MCG/ML 2 ML VIAL (100 MCG VIAL) ONE (13:40)
[2017-08-08] MEDS ORDERED: Midazolam* 1 MG/ML 10 ML VIAL (10 MG) ONE (13:40)
[2017-08-08] MEDS ORDERED: NS 0.9% 1000 ML* 1,000 ML IV SCH (14:15)
[2017-08-08] MEDS ORDERED: oxyCODONE/Acetamin 5/325 MG* TAB PO PRN (14:17)
[2017-08-08] MEDS ORDERED: Acetaminophen TAB* 325 MG PO PRN (14:17)
[2017-08-08] MEDS ORDERED: Nitroglycerin TAB 0.4 MG* 0.4 MG TAB SL PRN (14:17)
[2017-08-08 19:14] VITALS: BP 119/60
--- NOTE | 2017-08-09 03:34 | CATH ---
CC: Hospitalist service; Dr. Adames; Dr. Perales CARDIAC CATHETERIZATION NOTE: DATE OF PROCEDURE: 08/08/17 PROCEDURE: Left cardiac catheterization, selective coronary angiography, left ventriculography. WOOD CUTTER: Dr. Perales. HISTORY: The patient is a 66-year-old female patient who had a history of cerebrovascular accident a bout 2 years ago, further evaluation from cardiac standpoint and had an implantable loop recorder. S he was hospitalized with syncope. Further interrogation of her cardiac monitors showed 6 to 7 second s of ventricular tachycardia, a total of about 43 beats. The patient was further recommended for a c ardiac catheterization to evaluate her coronary anatomy in light of her ventricular tachycardia and s yncope. PROCEDURE IN DETAIL: After informed written consent had been obtained, the patient was brought into the cardiac catheterization lab where the right femoral region was prepped and draped in the usual st erile fashion. Next, the right femoral artery was entered and a 6-Emirati sheath placed into the formerly [facility] t femoral artery. Through the right femoral arterial sheath, a 6-Emirati JL4 catheter was advanced ov er the arch of the aorta, left coronary engaged, left coronary arteriography performed. This catheter was removed and a 6-Emirati JR4 catheter was advanced over the arch of the aorta, right coronary enga ged, right coronary arteriography performed. This catheter was removed and a 6-Emirati pigtail cathet er was advanced over the arch of the aorta into the left ventricle where left ventriculography was pe rformed. This catheter was removed. Hemostasis was obtained with a Mynx device successfully. There were no complications and the patient tolerated the procedure very well. HEMODYNAMICS: The aortic pressure is 135/70 mmHg. Left ventricle is 140 with an LVEDP of 8 mmHg. Left main coronary artery: The left main coronary artery was a good caliber vessel that gave rise to left anterior descending artery and circumflex coronary artery. The left main was free of any signif icant disease. Left anterior descending artery: The left anterior descending artery was a good caliber vessel. It did reach right around the apex of the left ventricle and was free of any significant disease. Circumflex coronary artery: The circumflex coronary artery was a good caliber vessel and was free of any significant disease. Right coronary artery: The right coronary artery was a good caliber vessel. It was dominant and it was free of any significant disease. Left ventriculography: Left ventriculography was performed in the standard KHAN projection. It showe d a normal left ventricular systolic function and wall motion with an EF of 55%. CONCLUSION: 1. Normal coronary artery system. 2. Normal left ventricular systolic function and wall motion with an EF of 55%. 3. Hemostasis obtained with the Mynx device successfully. [id number]/[facility] #: [id number]
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
== END 2017-08-08 20:30 | disposition home or self-care (01) | DRG 287 ==
LOC: ED 09:36 → MEDTELE 13:36 → OBSVTOIN 16:28
PROVIDERS: ADMIT Internal Medicine; ATTEND Internal Medicine
PROC: B2111ZZ Fluoroscopy of Multiple Coronary Arteries using Low Osmolar Contrast (ICD-10-PCS; principal; 2017-08-07)
PROC: B2151ZZ Fluoroscopy of Left Heart using Low Osmolar Contrast (ICD-10-PCS; 2017-08-07)
PROC: 4A023N7 Measurement of Cardiac Sampling and Pressure, Left Heart, Percutaneous Approach (ICD-10-PCS; 2017-08-07)
DX: I47.2 Ventricular tachycardia (principal); G93.89 Other specified disorders of brain; H53.462 Homonymous bilateral field defects, left side; I08.3 Combined rheumatic disorders of mitral, aortic and tricuspid valves; Q21.1 Atrial septal defect; R55 Syncope and collapse; J44.9 Chronic obstructive pulmonary disease, unspecified; M81.0 Age-related osteoporosis without current pathological fracture; I10 Essential (primary) hypertension; H54.7 Unspecified visual loss; R40.2362 Coma scale, best motor response, obeys commands, at arrival to emergency department; R40.2142 Coma scale, eyes open, spontaneous, at arrival to emergency department; R40.2252 Coma scale, best verbal response, oriented, at arrival to emergency department; R29.701 NIHSS score 1; E78.5 Hyperlipidemia, unspecified; F10.10 Alcohol abuse, uncomplicated; L93.0 Discoid lupus erythematosus; Z90.710 Acquired absence of both cervix and uterus; Z88.1 Allergy status to other antibiotic agents; Z82.49 Family history of ischemic heart disease and other diseases of the circulatory system; I69.398 Other sequelae of cerebral infarction; Z72.89 Other problems related to lifestyle; Z98.1 Arthrodesis status; Z80.3 Family history of malignant neoplasm of breast; Z87.891 Personal history of nicotine dependence; Z79.82 Long term (current) use of aspirin; Z80.1 Family history of malignant neoplasm of trachea, bronchus and lung
CPT/HCPCS: 36415; 70450; 70496; 70498; 70551; 71045; 80048; 80053; 80061; 80320; 81003; 81015; 82607; 82746; 83036; 83090; 83605; 83735; 84439; 84443; 84484; 85025; 85610; 85730; 86850; 86900; 86901; 87086; 93005; 93306; 93458; 93970; 94640; 94760; 99156; 99157; A9270-GY; C1760; C1887; G0378; G0480; J1644; J2250; J3010; J3475

== ENCOUNTER 2018-12-29 08:47 | Day surgery (SDC) | payer MEDICARE, OTHER ==
[~2018-12-29 08:47] MED LIST: Acetaminophen TAB* 325 MG PO PRN; Buffered Lidocaine 1% SYRIN* 1 ML/SYRINGE INTRADERM ONE
[2018-12-29] MEDS ORDERED: Midazolam* 1 MG/ML 2 ML VIAL (2 MG) ONE (10:36)
[2018-12-29] MEDS ORDERED: fentaNYL* 50 MCG/ML 2 ML VIAL (100 MCG VIAL) ONE (10:36)
[2018-12-29] MEDS ORDERED: Lidocaine 1%* 5 ML VIAL ONE (11:45)
[2018-12-29] MEDS ORDERED: Cyclopentolate 1% OPTH.SOL* 2 ML BTL ONE (11:45)
[2018-12-29] MEDS ORDERED: Tropicamide 1% OPTH.SOL* BTL ONE (11:45)
[2018-12-29] MEDS ORDERED: Phenylephrine OPHTH SOL 2.5%* 2 ML ONE (11:45)
[2018-12-29] MEDS ORDERED: Tetracaine 0.5% OPTH.SOL 4 ML* 1 DROP BTL ONE (11:45)
[2018-12-29] MEDS ORDERED: Ketorolac 0.5% OPHTH (NF) 0.5 % 5 ML BTL ONE (11:45)
[2018-12-29] MEDS ORDERED: Neomycin/Polymy/Dex OPHTH.OIN* 3.5 GM ONE (11:45)
[2018-12-29 12:59] VITALS: BP 113/65
--- NOTE | 2018-12-29 15:02 | OP ---
DATE OF OPERATION: 12/29/18 [facility]LY [facility] DATE OF : 54 SURGEON: Dr. Steven Renee. VET[employer]ANS CONTACT REPRESENTATIVE: None. ANESTHESIA: Topical with intravenous sedation. PRE-OP DIAGNOSIS: Cataract, right eye. POST-OP DIAGNOSIS: Cataract, right eye. OPERATIVE PROCEDURE: Phacoemulsification and cataract extraction with posterior chamber intraocular lens implant, right eye. COMPLICATIONS: None. BLOOD LOSS: None. DESCRIPTION OF PROCEDURE: The patient was brought to the operating room and received a small amount of intravenous sedation. A drop of Tetracaine was placed in her right eye. She was prepped and draped in the usual sterile fashion for ophthalmic surgery and attention was directed to the right eye where a speculum was placed. A paracentesis was created at the 11 o'clock position and 0.1 cc of 1 percent preservative-free Lidocaine was injected into the anterior chamber followed by DisCoVisc. The eye was digitally stabilized while a 2.75 mm keratome was used to create a triplanar clear corneal incision at the 9 o'clock position. A continuous curvilinear capsulorrhexis was created with a cystotome and Utrata forceps. BSS on a cannula was used to hydrodissect the lens from the capsule. Phacoemulsification was performed in a divide-and- conquer technique to create four fragments which were removed. Residual cortical material was removed with irrigation and aspiration. DisCoVisc was used to inflate the capsular bag and an AU00T0 23.0 diopter lens was folded and inserted into the capsular bag. DisCoVisc was removed using irrigation and aspiration. BSS on a cannula was used to hydrate the corneal stroma and seal the wound. At the end of the case the pupil was round and the lens was centered. The eye was of normal pressure and the wound was water tight. The speculum was removed and topical Maxitrol ointment was placed on the surface of the eye. The eye was closed, patched and shielded and the patient was sent to the recovery room in stable condition with post operative instructions and follow-up appointment given. [id number]/[facility] #: [id number] MTDD
== END 2018-12-29 11:50 | disposition home or self-care (01) ==
LOC: OREAST 08:47
PROVIDERS: ATTEND Ophthalmology
DX: H25.11 Age-related nuclear cataract, right eye (principal); J43.9 Emphysema, unspecified; Z87.891 Personal history of nicotine dependence; I47.1 Supraventricular tachycardia; F41.8 Other specified anxiety disorders
CPT/HCPCS: A9270-GY; J2250; J3010; V2632

== ENCOUNTER 2019-01-05 11:40 | Day surgery (SDC) | payer OTHER ==
[2019-01-05] MEDS ORDERED: Phenylephrine OPHTH SOL 2.5%* 2 ML ONE (11:43)
[2019-01-05] MEDS ORDERED: Tetracaine 0.5% OPTH.SOL 4 ML* 1 DROP BTL ONE (11:43)
[2019-01-05] MEDS ORDERED: Lidocaine 1%** 5 ML VIAL ONE (11:43)
[2019-01-05] MEDS ORDERED: Tropicamide 1% OPTH.SOL* BTL ONE (11:43)
[2019-01-05] MEDS ORDERED: Cyclopentolate 1% OPTH.SOL* 2 ML BTL ONE (11:43)
[2019-01-05] MEDS ORDERED: Neomycin/Polymy/Dex OPHTH.OIN* 3.5 GM ONE (11:43)
[2019-01-05] MEDS ORDERED: Ketorolac 0.5% OPHTH (NF) 0.5 % 5 ML BTL ONE (11:43)
[2019-01-05] MEDS ORDERED: Midazolam* 1 MG/ML 2 ML VIAL (2 MG) ONE ×2 (14:02→14:10)
[2019-01-05] MEDS ORDERED: Phenylephr/Ketorolac 1%/0.3% OPH DROP BTL ONE (15:14)
[2019-01-05 15:24] VITALS: BP 129/71
--- NOTE | 2019-01-05 15:35 | OP ---
OPERATIVE REPORT: DATE OF OPERATION: 01/05/19 DATE OF : 54 SURGEON: Dr. Steven Renee. ADDICTION PROFESSIONAL: None. ANESTHESIA: Topical with intravenous sedation. PRE-OP DIAGNOSIS: Cataract, left eye. POST-OP DIAGNOSIS: Cataract, left eye. OPERATIVE PROCEDURE: Phacoemulsification and cataract extraction with posterior chamber intraocular lens implant, left eye. COMPLICATIONS: None. BLOOD LOSS: None. OPERATIVE FINDINGS: The patient was brought to the operating room and received a small amount of int ravenous sedation. A drop of Tetracaine was placed in left left eye. She was prepped and draped in the usual sterile fashion for ophthalmic surgery and attention was directed to the left eye where a s peculum was placed. A paracentesis was created at the 5 o'clock position and 0.1 cc of 1 percent pre servative-free lidocaine was injected into the anterior chamber followed by DisCoVisc. The eye was d igitally stabilized while a 2.75 mm keratome was used to create a triplanar clear corneal incision at the 3 o'clock position. A continuous curvilinear capsulorrhexis was created with a cystotome and [place] forceps. BSS on a cannula was used to hydrodissect the lens from the capsule. Phacoemulsificat ion was performed in a [id number]-[id number] technique to create four fragments which were removed. Res idual cortical material was removed with irrigation and aspiration. DisCoVisc was used to inflate the capsular bag and an AU00T0 23.0 diopter lens was folded and inserted into the capsular bag. DisCoVi sc was removed using irrigation and aspiration. BSS on a cannula was used to hydrate the corneal str justin and seal the wound. At the end of the case the pupil was round and the lens was centered. The ey e was of normal pressure and the wound was water tight. The speculum was removed and topical Maxitro l ointment was placed on the surface of the eye. The eye was closed, patched and shielded, and the p atient was sent to the recovery room in stable condition with postoperative instructions and followup appointment given. [id number]/[facility] #: [id number]
== END 2019-01-05 14:46 | disposition home or self-care (01) ==
LOC: OREAST 11:40
PROVIDERS: ATTEND Ophthalmology
DX: H25.13 Age-related nuclear cataract, bilateral (principal); J45.909 Unspecified asthma, uncomplicated; I47.2 Ventricular tachycardia; E78.2 Mixed hyperlipidemia; K57.90 Diverticulosis of intestine, part unspecified, without perforation or abscess without bleeding; J43.2 Centrilobular emphysema; M85.80 Other specified disorders of bone density and structure, unspecified site; Z23 Encounter for immunization; Z88.8 Allergy status to other drugs, medicaments and biological substances; Z87.891 Personal history of nicotine dependence
CPT/HCPCS: A9270-GY; C9447; J2250; V2632